=== PATIENT | male | born 1955 | race Caucasian/White ===

== ENCOUNTER 2017-04-14 07:16 | Inpatient (IN) | payer OTHER ==
[2017-04-14] MEDS ORDERED: LIDOCAINE 1% 2 ML INJ ID PRN (07:57)
[2017-04-14] MEDS ORDERED: LR 1,000 ML IV ONE (07:57)
[2017-04-14] MEDS ORDERED: GADOBUTROL 10 ML VIAL IVP ONE (09:31)
[2017-04-14] MEDS ORDERED: THROMBIN (BOVINE) 5,000 UNIT VIAL TP ONE (10:04)
[2017-04-14] MEDS ORDERED: BACITRACIN ZINC 14.2 GM OINTTUBE TP ONE (10:04)
[2017-04-14] MEDS ORDERED: LIDOCAINE 1% 300 MG/30 ML SDV ONE (10:04)
[2017-04-14] MEDS ORDERED: SURGIFLO MATRIX KIT WITH THROMBIN TP ONE (10:04)
[2017-04-14] MEDS ORDERED: METHYLENE BLUE 0.5% 50 MG/10 ML AMP ONE (10:05)
[2017-04-14] MEDS ORDERED: EPINEPHrine 30 MG/30 ML MDV (0.1 MG/0.1 ML) ONE (11:26)
--- NOTE | 2017-04-14 12:08 | PDANEPAE ---
ANE History of Present Illness Pituitary tumor ANE Past Medical History - Cardiovascular History Hx Hypertension: Yes Hx Arrhythmias: No Hx Chest Pain: No Hx Coronary Artery / Peripheral Vascular Disease: Yes Hx CHF / Valvular Disease: No Hx Palpitations: No - Pulmonary History Hx COPD: No Hx Asthma/Reactive Airway Disease: No Hx Recent Upper Respiratory Infection: No Hx Oxygen in Use at Home: No Hx Sleep Apnea: No Sleep Apnea Screening Result - Last Documented: Positive - Neurologic History Hx Cerebrovascular Accident: No Hx Seizures: No Hx Dementia: No - Endocrine History Hx Diabetes: No - Renal History Hx Renal Disorders: No - Liver History Hx Hepatic Disorders: No - Neurological & Psychiatric Hx Hx Neurological and Psychiatric Disorders: No - Cancer History Hx Cancer: No - Congenital Disorder History Hx Congenital Disorders: No - GI History Hx Gastrointestinal Disorders: No - Other Health History Other Health History: none - Chronic Pain History Chronic Pain: No - Surgical History Prior Surgeries: appy 06/04. cervical fusion ,2015 ANE Review of Systems Review of systems is: negative Review of Systems: - Exercise capacity Exercise capacity: >=4 METS METS (RN): 4 METS ANE Patient History - Allergies Allergies/Adverse Reactions: No Known Allergies Allergy (Unverified 04/01/17 10:30) - Home Medications Home Medications: Acetaminophen [Tylenol 325mg (*)] 325 mg PO DAILY PRN 04/01/17 [Last Taken Unknown] Aspirin [Aspirin 325 mg (*)] 325 mg PO DAILY 04/01/17 [Last Taken 04/13/17] Clopidogrel Bisulfate [Plavix (*)] 75 mg PO DAILY 04/01/17 [Last Taken 04/13/17] Lisinopril [Zestril 5 mg (*)] 5 mg PO DAILY 04/01/17 [Last Taken 04/14/17 06:00] Sodium Cl Nasal [S[place]ell [place] (*)] 1 spray NS TID 04/01/17 [Last Taken 04/13/17] Varenicline Tartrate [Chantix 1MG (*)] 1 mg PO BID 04/01/17 [Last Taken 06:00] - NPO status NPO Status: no food or drink >8 hours NPO Since - Liquids (Date): 04/14/17 NPO Since - Liquids (Time): 06:00 NPO Since - Solids (Date): 04/13/17 NPO Since - Solids (Time): 21:30 - Anes Hx Anes Hx: no prior problems - Smoking Hx Smoking Status: Light smoker - Alcohol Use Alcohol Use: None - Family Anes Hx Family Hx Anesthesia Complications: none ANE Labs/Vital Signs - Vital Signs Blood Pressure: 127/67 Heart Rate: 60 Respiratory Rate: 18 O2 Sat (%): 93 Height: 180.34 cm Weight: 92.986 kg ANE Physical Exam - Airway Neck exam: FROM Mallampati Score: Class 2 Mouth exam: normal dental/mouth exam - Pulmonary Pulmonary: no respiratory distress - Cardiovascular Cardiovascular: regular rate and rhythym - ASA Status ASA Status: III ANE Anesthesia Plan Anesthesia Plan: general endotracheal anesthesia
[2017-04-14] MEDS ORDERED: MIDAZOLAM 2 MG/2 ML VIAL IVP ONE (12:10)
--- NOTE | 2017-04-14 12:13 | PDHPUP ---
History & Physical Update H&P update statement: This history and physical update is based on an assessment of the patient which was completed after admission or registration (within 24 hours), but prior to the surgery/procedure. H&P update: no change in patient's condition since H&P completed
[2017-04-14] MEDS ORDERED: ceFAZolin 2 GM/SWFI 2 GM/20 ML SYR IVP ONE (12:15)
[2017-04-14] MEDS ORDERED: HYDROCORTISONE 100 MG/2 ML VIAL ONE (12:17)
[2017-04-14] MEDS ORDERED: ROCURONIUM 100 MG/10 ML VIAL ONE (12:17)
[2017-04-14] MEDS ORDERED: PROPOFOL 200 MG/20 ML VIAL ONE ×2 (12:17→15:50)
[2017-04-14] MEDS ORDERED: fentaNYL 100 MCG/2 ML INJ ONE ×3 (12:17→17:32)
[2017-04-14] MEDS ORDERED: LIDOCAINE 2% 5 ML SDV ONE (12:17)
[2017-04-14] MEDS ORDERED: ONDANSETRON 4 MG/2 ML VIAL ONE ×2 (12:18→18:00)
[2017-04-14] MEDS ORDERED: ceFAZolin 1 GM VIAL ONE ×4 (12:49→15:42)
[2017-04-14] MEDS ORDERED: LIDO/EPI 2%** Not for Epidural 20 ML MDV ONE (12:56)
[2017-04-14] MEDS ORDERED: epHEDrine SULFATE 10 MG/ML SYR ONE (13:06)
[2017-04-14] MEDS ORDERED: GLYCOPYRROLATE 0.2 MG/1 ML VIAL ONE (13:51)
[2017-04-14] MEDS ORDERED: PHENYLEPHRINE HCL 100 MCG/ML SYR ONE (14:03)
[2017-04-14] MEDS ORDERED: PHENYLEPHRINE 10 MG/ML SDV ONE (14:40)
[2017-04-14] MEDS ORDERED: PROMETHAZINE HCL 25 MG/ML INJ IVP PRN ×2 (14:46→16:12)
[2017-04-14] MEDS ORDERED: BISACODYL 10 MG SUPP PR PRN (14:46)
[2017-04-14] MEDS ORDERED: POLYETHYLENE GLYCOL 3350 17 GM PKT PO PRN (14:46)
[2017-04-14] MEDS ORDERED: MAGNESIUM HYDROXIDE 30 ML UDCUP PO PRN (14:46)
[2017-04-14] MEDS ORDERED: ACETAMINOPHEN 325 MG TAB PO PRN (14:46)
[2017-04-14] MEDS ORDERED: ONDANSETRON DISINTEGRATING 4 MG TAB PO PRN (14:46)
[2017-04-14] MEDS ORDERED: LACTULOSE 20 GM/30 ML UDCUP PO PRN (14:46)
[2017-04-14] MEDS ORDERED: NS W/ 20 KCl/L 1,000 ML IV SCH (15:00)
[2017-04-14] MEDS ORDERED: NALOXONE HCL 0.4 MG/ML INJ IVP PRN (16:12)
[2017-04-14] MEDS ORDERED: HYDROmorphONE/DILAUDID 1 MG/ML INJ IVP PRN (16:12)
[2017-04-14] MEDS ORDERED: fentaNYL 100 MCG/2 ML INJ IVP PRN (16:12)
[2017-04-14] MEDS ORDERED: ALBUTEROL 3 ML DEYVIAL IH PRN (16:12)
[2017-04-14] MEDS ORDERED: ONDANSETRON 4 MG/2 ML VIAL IVP PRN (16:12)
[2017-04-14] MEDS ORDERED: LABETALOL HCL 5 MG/ML 20 ML MDV IVP PRN (16:12)
--- NOTE | 2017-04-14 16:14 | POSTANESTH ---
Post Anesthetic Evaluation Cardiovascular Status: Normal, Stable Respiratory Status: Normal, Stable Level of Consciousness/Mental Status: Can Participate in Eval Pain Control: Adequate, Prn Tx Ordered Nausea/Vomiting Control: Adequate, Prn Tx Ordered Complications Possibly Related to Anesthesia: None Noted
[2017-04-14] MEDS: SODIUM CL NASAL 45 ML BTL NS SCH ×2 (18:10→22:01)
[2017-04-14] MEDS ORDERED: VARENICLINE TARTRATE 1 MG TAB PO SCH (21:00)
[2017-04-14] MEDS: HYDROCODONE/APAP 10/325 TAB PO PRN (21:09)
[2017-04-14] MEDS: SENNOSIDES/DOCUSATE SODIUM TAB PO SCH (21:09)
[2017-04-14] MEDS: FAMOTIDINE 20 MG TAB PO SCH (21:09)
--- NOTE | 2017-04-14 22:47 | GOP ---
[f rep st] OPERATIVE REPORT DATE OF OPERATION: 04/14/2017 SURGEON: Michel Mcmullen MD NEUROSURGEON: Michel Mcmullen MD. ANESTHESIA: General endotracheal. PREOPERATIVE DIAGNOSIS: Cystic pituitary mass measuring about 1 cm. POSTOPERATIVE DIAGNOSIS: Cystic pituitary mass measuring about 1 cm. PROCEDURE PERFORMED: 1. Endoscopic transsphenoidal resection of pituitary mass. 2. Stealth stereotactic neuronavigation for volumetric gross total resection. 3. Placement of free mucosal graft. FINDINGS: SPECIMENS: Cystic pituitary lesion for permanent pathology. ESTIMATED BLOOD LOSS: 50 cc. INDICATIONS: The patient is a 61-year-old man who had an incidental discovery of a pituitary cystic lesion. 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 Although the cyst wall does not have a ny obvious contrast enhancement. I discussed with the patient the fact that we could simply just lillie ch this but he was concerned and wanted it to be removed. We therefore scheduled him electively for cyst removal today. DESCRIPTION OF PROCEDURE: After informed consent was obtained from the patient, the patient was brou ght to the operating room. He was placed in a supine position on the operating table. A formal time -out was performed, identifying the patient by name, medical record number, and date of . Preop erative antibiotics were given. The endotracheal tube was placed and general endotracheal anesthesia was smoothly induced. The patient's head was slightly extended and the nasal cavity and face was wa shed with Betadine. A few epinephrine soaked pledgets were placed in the nose for hemostasis. The p atient was then prepped and draped in the normal sterile fashion. The navigation system was register ed to the scalp using known surface landmarks and checked for accuracy and then the endoscope was the n used to explore the nasal cavity. Dr. Lal performed this part of the procedure where the middl e turbinate on the right side was resected and the nasal septum was brought down inferiorly for later use and a nasal septal flap if it was necessary. On the left side, the middle turbinate was moved l aterally and the sphenoid os was identified on both sides. A large sphenoidotomy was then performed, opening the entire sphenoid sinus. There was a lot of extra bone in the area of the rostrum which w as drilled down and a large bony intrasinus septum which connected over in the area of the left carot id artery. We then identified the area of the sella where the bone was extremely thin. Both carotid s swung somewhat medially giving a relatively narrow working angle. At this point, once the entire s cara was exposed, I was able to remove the bony floor and anterior wall of the sella exposing the dur a. The dura was then opened sharply and immediately some brownish motor oil like fluid was expressed suggestive of old blood products. At this point, the wall of the cystic structure was carefully dis sected away from the dura and was removed in a piecemeal fashion. This cyst did not have the consist ency of colloid which is typical of a Rathke's cleft cyst and appeared more like a hemorrhagic cavity . 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 We then carefully dissected the wall further away f rom the arachnoid and the arachnoid superiorly began to come down onto the field. A small CSF leak w as visualized which was covered with a piece of Gelfoam and no further CSF was leaking. At this poin t, we continued dissecting the cyst wall away until I did not see any further wall. The normal gland appeared to be superiorly and toward the right cavernous sinus and we carefully dissected the cyst w all away from this. Once the wall was completely removed, all bleeding was controlled with bipolar e lectrocautery and Gelfoam. The wound was copiously irrigated using warm sterile saline. An inlay pi pippa of DuraGen was placed within the sella beneath the dura and this was covered with DuraSeal. We t hen harvested a free mucosal graft from the piece of the middle turbinate which had been resected, an d this free mucosal graft was placed over the area of the sellar opening. This was again covered wit h DuraSeal and the sphenoid sinus was packed with Gelfoam. At this point, the septal mucosa was retu rned to its normal position and Dr. Lal placed a plastic splint on the right side and Merocel pac ks on both sides of the nose. The patient was then awakened in the operating room, was extubated, wa s transferred to the PACU in stable condition. There were no operative complications. I was scrubbe d and present for the entire procedure. CO-SURGEON: Lina Lal MD. COUNTS: All sponge and needle counts were correct at the end of the case. FLUIDS AND URINE OUTPUT: Per the anesthesia record. DRAINS: There were no drains. /[id number]/MODL
[2017-04-15] MEDS: HYDROCODONE/APAP 10/325 TAB PO PRN ×5 (01:34→19:11)
--- NOTE | 2017-04-15 03:07 | GOP ---
[f rep st] OPERATIVE REPORT DATE OF OPERATION: 04/14/2017 SURGEON: Lina Lal MD ANESTHESIA: General. PREOPERATIVE DIAGNOSIS: 1. Complex cystic intrasellar mass. 2. 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 POSTOPERATIVE DIAGNOSIS: 1. Complex cystic intrasellar mass. 2. 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 PROCEDURE PERFORMED: 1. Transsphenoidal approach to the pituitary. 2. Free mucosal graft. 3. Middle turbinate resection. 4. Stereotactic volumetric navigation of the paranasal sinuses and skull base utilizing t he [employer] Fusion system. FINDINGS: The patient was found to have a somewhat deviated septum to the left, making the left side of his nose somewhat narrow. The right side was narrowed secondary to a nurys bullosa of the middl e turbinate, which was taken down and gave us significantly more space. He had an aerated superior t urbinate bilaterally, as well as a very thick sphenoid and intersinus septum. All importa nt landmarks were visualized and kept intact. ESTIMATED BLOOD LOSS: Minimal. INDICATIONS: The patient is a very pleasant 61-year-old man who has a history of an intrasellar mass . He was seen by Dr. Mcmullen and they decided together that the patient would like this removed, and s o I was called for consultation and help with the approach. Informed consent was obtained by the pat iewanda and all risks were discussed with him preoperatively. DESCRIPTION OF PROCEDURE: The patient was first seen in the preoperative area, where informed consen t was obtained. He was then brought back to the operating room, where Anesthesia sedated and intubat ed him. The bed was turned 180 degrees. Notus time-out protocol was performed and confirmed. O nce this was done, the Medtronic Fusion headpiece was placed on the forehead, and he was prepped and draped in a sterile fashion. Once this was done, the Medtronic Fusion system was registered and then confirmed to be tracking accurately. Once this was confirmed, I then placed epi-soaked pledgets wit hin the nares bilaterally. Once these had sufficient time to act, they were removed. At this point, I used a 0 degree scope to evaluate the nasal cavity bilaterally, noting the middle turbinate nurys on the right and some deviation of the septum to the left. It was felt that taking down the middle turbinate would be helpful for access, and so about 1 cc of 2% lidocaine with 1:100,000 epinephrine w as injected into the crotch of the middle turbinate as well as the head of the middle turbinate. Aft er this had a little bit of time to act, a curved turbinate scissors was used to take down the middle turbinate starting at the crotch of the middle turbinate and then taking this back all the way poste riorly to the basal lamella and then finishing our incision vertically to completely remove this. Th e middle turbinate was removed from the nose and placed in some saline in case of need of mucosa late r. Once this was done, I was able to use the endoscopic bipolar to cauterize the edges and stop any small amount of bleeding. At this point, I then noted the superior turbinate. It was somewhat aerat ed. The straight Abdulaziz-Cut as well as the microdebrider were used to take down the superior turbinate, the inferior one-third portion of this, until I was able to find the sphenoid os. Once this was don e, the microdebrider was used to gently widen the mucosal portion of the sphenoid os superiorly and s lightly laterally, and then an epi-soaked pledget was placed at the face of the sphenoid. I then tur ramesh our attention to the left side. Using a [place], I outfractured the middle turbinate until I was a ble to see the superior turbinate, and then I took the inferior one-third portion of the superior tur binate down in the same fashion as on the right side using a combination of hand instruments and the microdebrider until I was able to see the natural os. The natural os was gently opened superiorly an d laterally as well as medially, utilizing up and down-biting 2 mm Kerrison rongeurs. I then turned my attention back to the right side, and using the 0-degree scope the epi-soaked pledget was removed. I did perform a rescue flap technique on this right side to keep a flap in case of need. So, the s uperior incision was made from the superior aspect of the sphenoid rostrum along the septum anteriorl y until about where the head of the middle turbinate would be, and then a slight back cut was made an teriorly and inferiorly, giving me better ability to retract this all the way. The Angelita instrument was then used to elevate the flap off the septum as well as the face of the sphenoid, thereby preser ving the pedicle as well as the septal flap if we needed it. This was placed in the floor of the nos e. Once this was done, I then used a Geary instrument to perform a posterior septectomy, and a stra ight Abdulaziz-Cut as well as Kerrison rongeurs were used to take down the septum as well as the intersinus septum. Up and down-biting Kerrisons were used to widen the sphenoid antrostomy superolaterally and inferior, down to the floor of the sphenoid. I then also used the 2.9 mm pacheco drill bit to take down some of the sphenoid rostrum, some of the intersinus septum, as well as some of the septum. Onc e this was done and it was felt like we had good visualization of the sella, as well as the bilateral opticocarotid recesses, Dr. Mcmullen and I then switched positions. I came to the patient's left side, he came to the right side, then he performed the excision of the sellar mass. This will be dictated in a separate dictation. Once he had done this, there was a small CSF leak, so he placed a DuraGen underlay, followed by DuraSeal, and then a middle turbinate mucosal graft was taken off the middle tu rbinate that was previously removed, and this was laid over the DuraSeal and then the DuraSeal was pl aced over this mucosal graft again. All previous mucosal edges had been removed to try to prevent a mucocele later postoperatively. Once this was done, Gelfoam was packed in the sphenoid sinus. The s eptal flap was replaced, and then a An splint that had been cut to size was sutured to the caudal portion of the septum using a 3-0 Prolene. I then used 2 Merocels that were placed in gloved fingers and then sutured into place on either side of the septum, on the right and the left, and then these were inflated with saline. Once this was done, and the nasopharynx had previously been suctioned out , the patient was turned back over to Anesthesia, where he was awakened and extubated and taken to [facility] in stable condition. There were no complications and he tolerated the procedure well. SURGEON: Dr. Lina Lal CO-SURGEON: Michel Mcmullen MD COMPLICATIONS: None. /[id number]/MODL
[2017-04-15] MEDS: ONDANSETRON 4 MG/2 ML VIAL IVP PRN ×2 (05:40→14:40)
[2017-04-15 06:20] LABS: ANION GAP 13 mEq/L (8-16); CALCIUM 9.1 mg/dL (8.5-10.4); CARBON DIOXIDE 23 mEq/l (22-31); CHLORIDE 102 mEq/L (97-110); CREATININE 0.9 mg/dL (0.7-1.3); GLOMERULAR FILTRATION RATE > 60; GLUCOSE 140 mg/dL (70-100); POTASSIUM 4.6 mEq/L (3.5-5.2); SODIUM 138 mEq/L (134-144)
--- NOTE | 2017-04-15 07:44 | POSTOPPROG ---
Post Op Note Date of Operation: 04/15/17 Surgeon: Michel Mcmullen Resident Doctor: Second surgeon Lina Lal Anesthesia: GET(General Endotracheal) Pre-op Diagnosis: Pituitary mass Post-op Diagnosis: same Procedure: Transsphenoidal resection of pituitary mass vs cyst Inf/Abcess present in the surg proc area at time of surgery?: No Depth: Organ Space Complications: Small CSF leak SOAP Progress Note Assessment/Plan: Assessment: Plan: 04/15/17 07:41 S: Patient in PACU. Stable O: NAD, VSS Nasal packing in place CN II-XII grossly intact PERRL, EOMI No CSF leak visualized or bleeding through packing BUE/BLE 09/20 A: 61 yo male sp transsphenoidal approach for resection of pituitary mass P: -Admit to ICU -Close urine output monitoring- if greater than 250 per hour or greater than 400 in 2 hours order stat urine spec grave and serum osm and call PA with results -HOB elevated 30 degrees -Head CT in am -Nasal packing to be removed Friday by Dr. Lal -No blowing nose or sipping through a straw for 6 weeks -Patient seen and examined in PACU by DR. Mcmullen Objective: Vital Signs Temp Pulse Resp BP Pulse Ox 36.7 C 69 16 133/51 H 94 04/14/17 20:00 04/15/17 06:00 04/15/17 06:00 04/15/17 06:00 04/15/17 06:00 Laboratory Results 04/15/17 05:55 04/14/17 04/15/17 04/16/17 05:59 05:59 05:59 Intake Total 2750 Output Total 1230 Balance 1520
[2017-04-15] MEDS: LISINOPRIL 5 MG TAB PO SCH (08:15)
[2017-04-15] MEDS: SENNOSIDES/DOCUSATE SODIUM TAB PO SCH ×2 (08:15→20:04)
[2017-04-15] MEDS: FAMOTIDINE 20 MG TAB PO SCH ×2 (08:16→20:00)
[2017-04-15] MEDS: HYDROCORTISONE 10 MG TAB PO SCH ×2 (08:16→20:06)
--- NOTE | 2017-04-15 08:27 | NEUSURGPN ---
Date of Surgery: 04/14/17 Post Op Day: 1 Assessment/Plan: Assessment: 61 yo male s/p transsphenoidal approach for resection of pituitary mass POD #1 Plan: -Admit to ICU-can likely transfer up today if does well -Na 138 -UOP 1200 since surgery -lópez just removed-will watch for any voiding -Close urine output monitoring- if greater than 250 per hour or greater than 400 in 2 hours order stat urine spec gravity and serum osm and call PA with results -HOB elevated 30 degrees -pt with some dizziness/nausea-added scopolomine patch -no nasal dc this am-no salty taste in mouth -Head CT reviewed-will confirm with radiology reading this am -Nasal packing to be removed Friday by Dr. Lal -No blowing nose or sipping through a straw for 6 weeks -D/W Dr Mcmullen Subjective: Awake and alert. NAD. Eating/drinking and voiding. No f/c/n/v/d. No robbins/neck/ chest/abd or gu complaints. Objective: NAD, VSS Nasal packing in place CN II-XII grossly intact PERRL, EOMI No CSF leak visualized or bleeding through packing BUE/BLE 09/20 Neuro Check Frequency: per routine Urinary Catheter in Place: No Catheter Insertion Date: 04/14/17 - Physician Discussed Patient with Dr.: Mcmullen Neurosurgery Physical Exam - Vitals, I&O, Labs I and O 04/14/17 04/15/17 04/16/17 05:59 05:59 05:59 Intake Total 2750 Output Total 1230 Balance 1520 Weight 92.98 kg Intake: Oral (ml) 850 IV Intake (ml) 1900 Output: Urine (ml) 1200 Catheter 1200 Toilet 0 Estimated Blood Loss (ml) 30 Vital Signs Temp Pulse Resp BP Pulse Ox 36.7 C 69 16 133/51 H 94 04/14/17 20:00 04/15/17 06:00 04/15/17 06:00 04/15/17 06:00 04/15/17 06:00 Laboratory Results 04/15/17 05:55 ICD10 Worksheet Patient Problems: Problems Problem Status Onset Pituitary mass Acute - ICD10 Problem Qualifiers (1) Pituitary mass
[2017-04-15] MEDS ORDERED: SCOPOLAMINE HYDROBROMIDE 1 MG/3 DAYS PATCH TD ONE (08:28)
--- NOTE | 2017-04-15 08:59 | SOAPPROG ---
SOAP Progress Note Assessment/Plan: Assessment: POD 1 TSS for pituitary mass. Doing well overall, po CT done this am reviewed, looks as expected from a sinonasal standpoint. Keep packs in today, likely pull tomorrow. Reviewed CSF leak precautions. Continue current care. Plan: 04/15/17 08:58 Subjective: Pt doing well, denies pain. Does c/o nausea. No sig leakage of fluid from front or back. No salty or metallic taste, vision good Objective: AFVSS RA sitting in chair packs in place B Oc/OP clear Vital Signs Temp Pulse Resp BP Pulse Ox 36.7 C 69 16 133/51 H 94 04/14/17 20:00 04/15/17 06:00 04/15/17 06:00 04/15/17 06:00 04/15/17 06:00 Laboratory Results 04/15/17 05:55 04/14/17 04/15/17 04/16/17 05:59 05:59 05:59 Intake Total 2750 Output Total 1230 Balance 1520 ICD10 Worksheet Patient Problems: Problems Problem Status Onset Pituitary mass Acute
[2017-04-15] MEDS: SODIUM CL NASAL 45 ML BTL NS SCH ×3 (09:00→21:57)
[2017-04-15] MEDS: VARENICLINE TARTRATE 1 MG TAB PO SCH ×2 (09:10→20:05)
--- NOTE | 2017-04-15 09:48 | ASMTCMCOM ---
CM Note CM Note Notes: 61 year old male admitted for MONSALVE and hx of pituitary mass since 2012. He has a hx of HTN, c-spine surgery, blocked carotid arteries. Patient elected to have surgery and this is POD #1. Therapies to eval for discharge needs. CM to follow. Date Signed: 04/15/2017 09:48 AM Electronically Signed By:Sharri Johnson LCSW
[2017-04-16] MEDS: HYDROCODONE/APAP 10/325 TAB PO PRN ×3 (01:11→11:40)
--- NOTE | 2017-04-16 01:42 | GCON ---
[f rep st] CONSULTATION CRITICAL CARE CONSULT DATE OF CONSULTATION: 04/15/2017 HISTORY OF PRESENT ILLNESS: This patient is a 61-year-old male with a history of a known pituitary m ass that has been stable since 2012. He had recent trouble with headaches but was found to have appe ndicitis and underwent appendectomy; however, continued followup shows a cystic-appearing mass that w as with slight increased compression of the optic nerves and was found to be relatively stable, and idalmis salazar was interested in resection, which occurred yesterday without complications. He does report some n ausea today and a little bit unsteady on his feet but is relatively stable. REVIEW OF SYSTEMS: Otherwise negative. PAST MEDICAL HISTORY: Includes hypertension, carotid artery disease. PAST SURGICAL HISTORY: Includes appendectomy and C-spine fusion in the past. SOCIAL HISTORY: He is a current smoker of a pack a day for 40 years but no known COPD. No significa nt alcohol or IV drug use. FAMILY HISTORY: Noncontributory at this time. CURRENT MEDICATIONS: Include Jameson, Dulcolax, Pepcid, hydrocortisone, Zestril, milk of magnesia, Zof ran, MiraLAX, Phenergan, Chantix. PHYSICAL EXAMINATION: VITAL SIGNS: He was afebrile. His blood pressure 140/82, heart rate 69, resp iratory rate 16, oxygen saturation 96% on room air. GENERAL: He was alert and oriented x3, in no ap parent distress, able to speak in full sentences without using accessory muscles for breathing. HEEN T: Pupils equally round and reactive to light, not icteric, not injected. Mucous membranes moist wi thout erythema or exudate. NECK: Supple, without adenopathy or jugular vein distention. BREATH [place] NDS: Clear to auscultation bilaterally without wheezes, rubs, rales. HEART: Regular rate and rhyth m without murmurs, rubs, gallops. ABDOMEN: Soft, nontender, nondistended without hepatosplenomegaly . EXTREMITIES: No clubbing, cyanosis, or edema. NEUROLOGIC: Nonfocal, including cranial nerves an d deep tendon reflexes. SKIN: Warm and dry, without evidence of rash. OBJECTIVE DATA: Includes only labs from yesterday, which were essentially normal. Head CT from toda y showed normal expected postoperative changes. ASSESSMENT AND PLAN: 1. Hypertension: He did receive his lisinopril today, which I would simply continue for now. His b lood pressure seems to be adequately controlled at this time. 2. Carotid disease: He has been previously on Plavix and aspirin, and this has been currently held. I would defer to Neurosurgery when they are comfortable resuming this. 3. Tobacco dependence: He is on full-dose Chantix. My assumption is that he has had a week-long pr eoperative trial before starting at the full dose, which should go for the next 11 weeks. /[id number]/MODL
[2017-04-16 02:10] LABS: ANION GAP 12 mEq/L (8-16); CALCIUM 9.3 mg/dL (8.5-10.4); CARBON DIOXIDE 24 mEq/l (22-31); CHLORIDE 104 mEq/L (97-110); CREATININE 0.9 mg/dL (0.7-1.3); GLOMERULAR FILTRATION RATE > 60; GLUCOSE 120 mg/dL (70-100); POTASSIUM 4.9 mEq/L (3.5-5.2); SODIUM 140 mEq/L (134-144)
[2017-04-16 06:13] LABS: ANION GAP 11 mEq/L (8-16); CALCIUM 9.3 mg/dL (8.5-10.4); CARBON DIOXIDE 26 mEq/l (22-31); CHLORIDE 103 mEq/L (97-110); CREATININE 0.9 mg/dL (0.7-1.3); GLOMERULAR FILTRATION RATE > 60; GLUCOSE 117 mg/dL (70-100); POTASSIUM 4.7 mEq/L (3.5-5.2); SODIUM 140 mEq/L (134-144)
[2017-04-16 06:42] VITALS: O2SAT 95
--- NOTE | 2017-04-16 07:22 | NEUSURGPN ---
Date of Surgery: 04/14/17 Post Op Day: 2 Assessment/Plan: Assessment: 61 yo male s/p transsphenoidal approach for resection of pituitary mass POD #2 Plan: -SDU status at this time-plan for dc later today once ENT clears for dc -Na 140 -UOP increased last night with 350 in one hour-labs drawn and noted -lópez removed and voiding well -Close urine output monitoring- if greater than 250 per hour or greater than 400 in 2 hours order stat urine spec gravity and serum Na and call PA with results -HOB elevated 30 degrees -pt with some dizziness/nausea-added scopolomine patch-resolved this am -no nasal dc this am-no salty taste in mouth -Head CT reviewed report as well -Nasal packing to be removed today by Dr. Lal -No blowing nose or sipping through a straw for 6 weeks -D/W Dr Mcmullen-agree Subjective: No new complaints or concerns. No f/c/n/v/d. No robbins/neck/chest/abd or gu complaints. No new concerns this am Objective: NAD, VSS Nasal packing in place CN II-XII grossly intact PERRL, EOMI No CSF leak visualized or bleeding through packing BUE/BLE / Neuro Check Frequency: per routine Urinary Catheter in Place: No Catheter Insertion Date: 04/14/17 - Physician Discussed Patient with Dr.: Mcmullen Patient Seen by : [facility] Neurosurgery Physical Exam - Vitals, I&O, Labs I and O 04/15/17 04/16/17 04/17/17 05:59 05:59 05:59 Intake Total 2750 1920 Output Total 1230 2200 320 Balance 1520 -280 -320 Weight 92.98 kg Intake: Oral (ml) 850 1920 IV Intake (ml) 1900 Output: Urine (ml) 1200 2200 320 Catheter 1200 Toilet 0 Urinal 2200 320 Estimated Blood Loss (ml) 30 Vital Signs Temp Pulse Resp BP Pulse Ox 36.6 C 52 L 12 145/70 H 95 04/15/17 20:00 04/16/17 04:00 04/16/17 04:00 04/16/17 04:00 04/16/17 04:00 Laboratory Results 04/16/17 05:40 ICD10 Worksheet Patient Problems: Problems Problem Status Onset Pituitary mass Acute - ICD10 Problem Qualifiers (1) Pituitary mass
[2017-04-16] MEDS ORDERED: SCOPOLAMINE HYDROBROMIDE 1 MG/3 DAYS PATCH TD ONE (07:34)
[2017-04-16] MEDS: LISINOPRIL 5 MG TAB PO SCH (07:59)
[2017-04-16] MEDS: FAMOTIDINE 20 MG TAB PO SCH (07:59)
[2017-04-16] MEDS: SENNOSIDES/DOCUSATE SODIUM TAB PO SCH (07:59)
[2017-04-16] MEDS: VARENICLINE TARTRATE 1 MG TAB PO SCH (07:59)
[2017-04-16] MEDS ORDERED: SCOPOLAMINE HYDROBROMIDE 1 MG/3 DAYS PATCH TD SCH (08:00)
[2017-04-16] MEDS: SODIUM CL NASAL 45 ML BTL NS SCH (08:00)
[2017-04-16] MEDS ORDERED: PATCH REMOVAL 1 EA PATCH TD ONE (08:28)
[2017-04-16 08:32] VITALS: TEMP 97.8
[2017-04-16] MEDS ORDERED: HYDROCORTISONE 10 MG TAB PO SCH (09:00)
[2017-04-16 12:23] VITALS: BP 129/103; PULSE 61; RESP 14
[2017-04-17] MEDS ORDERED: PATCH REMOVAL 1 EA PATCH TD ONE (07:34)
[2017-04-17] MEDS ORDERED: HYDROCORTISONE 10 MG TAB PO ONE (09:00)
[2017-04-17] MEDS ORDERED: HEPARIN 5,000 UNIT/0.5 ML SYR SC SCH (09:00)
[2017-04-19] MEDS ORDERED: PATCH REMOVAL 1 EA PATCH TD SCH (07:49)
== END 2017-04-16 15:00 | disposition home or self-care (01) | DRG 614 ==
LOC: F3N 07:16 → F2N 18:24
PROVIDERS: ADMIT Neurological Surgery; ATTEND Neurological Surgery
PROC: 8E09XBZ Computer Assisted Procedure of Head and Neck Region (ICD-10-PCS; principal; 2017-04-14 12:30)
PROC: 0GB00ZZ Excision of Pituitary Gland, Open Approach (ICD-10-PCS; principal; 2017-04-14 12:30)
PROC: 09TL7ZZ Resection of Nasal Turbinate, Via Natural or Artificial Opening (ICD-10-PCS; principal; 2017-04-14 12:30)
PROC: 00U207Z Supplement Dura Mater with Autologous Tissue Substitute, Open Approach (ICD-10-PCS; principal; 2017-04-14 12:30)
DX: D35.2 Benign neoplasm of pituitary gland (principal); G97.41 Accidental puncture or laceration of dura during a procedure; J34.89 Other specified disorders of nose and nasal sinuses; I10 Essential (primary) hypertension; F17.210 Nicotine dependence, cigarettes, uncomplicated; Z98.1 Arthrodesis status
CPT/HCPCS: 97116-GP; 97161-GP; A9585; J0171; J0690; J2250; J2370; J2405; J2704; J3010; Q9968